=== PATIENT | female | born 1975 ===

== ENCOUNTER 2017-04-29 21:30 | Emergency (ER) | payer SELFPAY ==
[2017-04-29 21:31] VITALS: BMI 26.8
[2017-04-29 21:35] VITALS: BP 135/90; PULSE 113; RESP 20; TEMP 100.8; O2SAT 97
[2017-04-29] MEDS ORDERED: Albuterol-Ipratrop 3 mg / 0.5 (3 ml) UD INH STA (22:07)
[2017-04-29] MEDS ORDERED: Albuterol-Ipratrop 3 mg / 0.5 (3 ml) UD ONE (22:13)
--- NOTE | 2017-04-29 22:19 | ED PDOC ---
HPI: CCC, URI, Sore Throat Time Seen by Provider: 04/29/17 21:36 Chief Complaint (Nursing): Cough, Cold, Congestion Chief Complaint (Provider): cough, cold, congestion History Per: Patient History/Exam Limitations: no limitations Have you had recent travel within the past 21 days to any of the following countries: [place], [place], [place] or [place]?: No Onset/Duration Of Symptoms: Days (x3) Current Symptoms Are (Timing): Still Present Sick Contacts (Context): None Associated Symptoms: Fever Additional Complaint(s): Amber Brock, 41 year old female with a past medical history inclusive of Bronchitis, presents to the ED for fever associated with cough, congestion, and difficulty breathing occurring for 3 days prior to arrival. The patient states she used her Albuterol pump once today with some relief. She reports also feeling shortness of breath, wheezing, and body aches. She states her cough is dry. The patient denies chest pain and has no medical history of asthma. Of note, the patient's past surgical history is inclusive of a . PMD: None Provided Past Medical History Reviewed: Historical Data, Nursing Documentation, Vital Signs Vital Signs: Last Vital Signs Temp 100.8 F H 04/29/17 21:32 Pulse 113 H 04/29/17 21:32 Resp 20 04/29/17 21:32 BP 135/90 04/29/17 21:32 Pulse Ox 97 04/30/17 00:58 - Medical History PMH: Bronchitis Denies: Chronic Kidney Disease - Surgical History Surgical History: - Family History Family History: States: Unknown Family Hx - Social History Current smoker - smoking cessation education provided: No Ex-Smoker (has not smoked in the last 12 months): No Alcohol: None Drugs: Denies - Home Medications Home Medications: Ambulatory Orders Medication Instructions Recorded Vitamin E [Vitamin E] 1,000 unit PO DAILY 03/18/16 Levofloxacin 500 mg PO ONCE #14 tablet 03/20/16 metroNIDAZOLE [Flagyl] 500 mg PO BID #28 tab 03/20/16 Azithromycin [Zithromax] 250 mg PO DAILY #6 tab 01/16/17 Benzonatate 200 mg PO TID PRN #20 capsule 01/16/17 Albuterol HFA [Ventolin HFA 90 1 puff IH ASDIR #1 unit 04/30/17 mcg/actuation (8 g)] Azithromycin [Z-Manuel] 250 mg PO DAILY #6 tab 04/30/17 - Allergies Allergies/Adverse Reactions: Allergies Allergy/AdvReac Type Severity Reaction Status Date / Time No Known Allergies Allergy Verified 03/18/16 05:23 Review of Systems ROS Statement: Except As Marked, All Systems Reviewed And Found Negative Constitutional: Positive for: Fever ENT: Positive for: Nose Congestion Cardiovascular: Negative for: Chest Pain Respiratory: Positive for: Cough (dry), Shortness of Breath (difficulty breathing ), Wheezing Musculoskeletal: Positive for: Other (body aches ) Physical Exam - Reviewed Nursing Documentation Reviewed: Yes Vital Signs Reviewed: Yes - Physical Exam Appears: Positive for: Well, Non-toxic, No Acute Distress Head Exam: Positive for: ATRAUMATIC, NORMAL INSPECTION, NORMOCEPHALIC Skin: Positive for: Normal Color, Warm, DRY Eye Exam: Positive for: EOMI, Normal appearance, PERRL ENT: Positive for: Normal ENT Inspection Neck: Positive for: Normal, Painless ROM Cardiovascular/Chest: Positive for: Regular Rate, Rhythm. Negative for: Murmur , Tachycardia Respiratory: Positive for: Normal Breath Sounds, Wheezing (bilaterally). Negative for: Respiratory Distress Gastrointestinal/Abdominal: Positive for: Normal Exam, Bowel Sounds, Soft. Negative for: Tenderness Back: Positive for: Normal Inspection Extremity: Positive for: Normal ROM Neurologic/Psych: Positive for: Alert, Oriented - Laboratory Results Result Diagrams: 04/29/17 22:46 04/29/17 22:46 - ECG O2 Sat by Pulse Oximetry: 97 (RA) Pulse Ox Interpretation: Normal - Radiology X-Ray: Interpreted by Me, Viewed By Me X-Ray Interpretation: No Acute Disease - Progress Re-evaluation Time: 00:40 Condition: Re-examined, Improved Nebulizer Treatments/Peak Flow - Duonebs Number of Bronchodilator Doses given?: 2 - Steroid Treatment Steroid: Not Clinically Indicated - Clinical Response Clinical Response: Improved Medical Decision Making Medical Decision Making: Impression: Acute Bronchitis Differential includes: pneumonia Plan: * ED EKG * Basic Metabolic panel * CBC (With Differential) * Chest Two Views (PA/LAT) [RAD] * Blood Culture * Peak Flow Pre/post * Influenza A B * Duoneb 3 mg/0.5 mg (3 ml) UD 3 ml inh * Reevaluation Scribe Attestation: Documented by Milla Pastrana, acting as a scribe for Virgie Fuentes MD. Provider Scribe Attestation: All medical record entries made by the Scribe were at my direction and personally dictated by me. I have reviewed the chart and agree that the record accurately reflects my personal performance of the history, physical exam, medical decision making, and the department course for this patient. I have also personally directed, reviewed, and agree with the discharge instructions and disposition. Disposition - Clinical Impression Clinical Impression: Acute bronchitis - Patient ED Disposition Is Patient to be Admitted: No Doctor Will See Patient In The: Office Counseled Patient/Family Regarding: Studies Performed, Diagnosis, Need For Followup - Disposition Referrals: [facility] [Outside] Disposition: Routine/Home Disposition Time: 00:55 Condition: GOOD Additional Instructions: Take your medications as instructed. Follow up with your PCP in 2-3 days. Prescriptions: Albuterol HFA [Ventolin HFA 90 mcg/actuation (8 g)] 1 puff IH ASDIR #1 unit Azithromycin [Z-Manuel] 250 mg PO DAILY #6 tab Instructions: Acute Bronchitis (ED) Print Language: AZERI
[2017-04-29 22:53] LABS: BASO # 0.1 K/uL (0.0-0.2); BASO % 0.4 % (0.0-2.0); EOS # 0.6 K/uL (0.0-0.7); EOS % 4.5 % (0.0-4.0); HEMOGLOBIN 12.9 g/dL (12.0-16.0); LYMPH % 14.3 % (20.0-40.0); MEAN CELL VOLUME 85.8 fl (81.0-99.0); MEAN CORPUSCULAR HEMOGLOBIN 28.2 pg (27.0-31.0); MEAN CORPUSCULAR HGB CONC 32.9 g/dL (33.0-37.0); MEAN PLATELET VOLUME 8.6 fl (7.2-11.7); MONO # 0.9 K/uL (0.0-0.8); MONO % 6.6 % (0.0-10.0); NEUT # 10.5 K/uL (1.8-7.0); NEUT % 74.2 % (50.0-75.0); RBC 4.57 Mil/uL (3.80-5.20); RED CELL DISTRIBUTION WIDTH 13.7 % (11.5-14.5); WHITE BLOOD COUNT 14.2 K/uL (4.8-10.8)
[2017-04-29 23:01] LABS: BLOOD UREA NITROGEN 9 mg/dl (7-17); CALCIUM 9.1 mg/dL (8.4-10.2); GFR AFRICAN-AMERICAN > 60; GFR NON-AFRICAN AMERICAN > 60
[2017-04-30] MEDS ORDERED: Albuterol-Ipratrop 3 mg / 0.5 (3 ml) UD INH STA (00:16)
--- NOTE | 2017-04-30 09:24 | RAD ---
HISTORY: cough dyspnea COMPARISON: No prior. TECHNIQUE: Chest PA and lateral FINDINGS: LUNGS: No active pulmonary disease. PLEURA: No significant pleural effusion identified. No pneumothorax apparent. CARDIOVASCULAR: Normal. OSSEOUS STRUCTURES: No significant abnormalities. VISUALIZED UPPER ABDOMEN: Normal. OTHER FINDINGS: None. IMPRESSION: No radiographic evidence of pneumonia.
== END 2017-04-30 01:43 | disposition home or self-care (01) ==
LOC: H.ER 21:30
DX: J20.9 Acute bronchitis, unspecified (principal)